=== PATIENT | male | born 1955 | race Caucasian/White ===

== ENCOUNTER 2025-07-04 09:39 | Outpatient (CLI) | payer MEDICARE, SELFPAY ==
--- NOTE | 2025-07-04 10:00 | CRLHL7_ITS ---
For Patients: As a result of the 21st Century Cures Act, medical imaging exams and procedure reports are released immediately into your electronic medical record. You may view this report before your referring provider. If you have questions, please contact your health care provider. Indication: SURVEILLANCE-TREATED STAGE III LUNG ADENOCARCINOMA Technique: CT Chest/Abd/Pelvis 66CC ISOVUE 370 INTRAVENOUS CONTRAST AND WATER PREP Please note that all CT scans at this facility use dose modulation, iterative reconstruction, and/or weight-based dosing when appropriate to reduce radiation dose to as low as reasonably achievable. Comparison: 04/12/2024, 07/21/2023, 04/29/2023, 08/27/2022 Findings: In the chest, the visualized thyroid is similar. Precarinal lymph node measures 1.2 cm, not significantly changed since the most recent exam. Subcarinal lymph node measures 1.5 cm, similar to the 07/21/2023 study. Fullness of the hilar soft tissues noted bilaterally, chronic. No pericardial effusion. Left shoulder replacement hardware. Degenerative disc disease lower cervical spine. Chronic wedge compression deformity of T8. No new fracture. Severe emphysema. 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 No acute infiltrate. No pleural effusion or edema. No pneumothorax. Incidental azygous fissure. A few scattered tiny pulmonary nodules are not significantly changed. In the abdomen, there is no intrahepatic mass. The gallbladder is within normal limits. Normal pancreas and spleen. Adrenal glands are normal. No hydronephrosis or solid renal mass. Atherosclerotic changes. Sub cm retroperitoneal lymph nodes are unchanged. In the pelvis, there is a hyperechoic structure associated with the left posterior of the bladder which measures 1.1 cm, series 9, image 68. Dense prostate calcifications are present. No fracture. Discogenic spurring L4-5 and L3-4. No intrinsic osseous lesion. No bowel obstruction. No free air. No free fluid or abscess. Postop changes to the right lower quadrant. No recurrent hernia. No adenopathy in the pelvis or inguinal regions. Impression: Similar appearance of the chest with severe emphysema with associated fibrosis. No suspicious pulmonary nodule. Similar intrathoracic adenopathy with mildly prominent precarinal, subcarinal and bilateral hilar lymph nodes. Hyperdense lesion associated with the left posterior bladder wall measuring 1.1 cm. Ultrasound of the bladder recommended as an initial step for further evaluation. Chronic wedging of T8. No new fracture. Please note that all CT scans at this facility use dose modulation, iterative reconstruction, and/or weight-based dosing when appropriate to reduce radiation dose to as low as reasonably achievable. Dictated by Dewayne Garcia MD @ 07/05/2025 9:49:52 AM (Electronically Signed)
== END 2025-07-04 09:40 | disposition home or self-care (01) ==
LOC: CT 09:45
PROVIDERS: PCP Student in an Organized Health Care Education/Training Program; Visit Provider Clinical Nurse Specialist
DX: Z08 Encounter for follow-up examination after completed treatment for malignant neoplasm (principal); Z85.118 Personal history of other malignant neoplasm of bronchus and lung; J43.9 Emphysema, unspecified; J84.10 Pulmonary fibrosis, unspecified; R59.0 Localized enlarged lymph nodes; N32.89 Other specified disorders of bladder
CPT/HCPCS: 71260; 74177; Q9967

== ENCOUNTER 2025-07-14 09:34 | Outpatient (CLI) | payer MEDICARE, OTHER, SELFPAY ==
--- NOTE | 2025-07-14 10:00 | CRLHL7_ITS ---
For Patients: As a result of the Century Cures Act, medical imaging exams and procedure reports are released immediately into your electronic medical record. You may view this report before your referring provider. If you have questions, please contact your health care provider. CLINICAL HISTORY: Bladder lesion COMPARISON: CT 07/04/2025 TECHNIQUE: Ortez scale and color Doppler images were acquired of the kidneys and urinary bladder. FINDINGS: Sonographic images reveal a symmetric appearance of the kidneys. There is no evidence of hydronephrosis, mass or calculus. The right kidney measures 10.9cm in length and the left kidney measures 9.9cm in length. The renal cortex appears of normal thickness. Normal color Doppler imaging of both kidneys. Heterogeneous soft tissue lesion within the left posterior bladder corresponds to the CT which measures 1.2 x 0.7 x 1.1 cm. Bladder volume 28 cc. IMPRESSION: 1.2 x 0.7 x 1.1 cm soft tissue left posterolateral bladder mass. Urology referral recommended. Dictated by Dewayne Garcia MD @ 07/16/2025 1:32:42 PM (Electronically Signed)
== END 2025-07-14 09:35 | disposition home or self-care (01) ==
PROVIDERS: PCP Student in an Organized Health Care Education/Training Program; Visit Provider Clinical Nurse Specialist
DX: N32.9 Bladder disorder, unspecified (principal); C34.90 Malignant neoplasm of unspecified part of unspecified bronchus or lung; F17.200 Nicotine dependence, unspecified, uncomplicated
CPT/HCPCS: 76770